=== PATIENT | female | born 1960 | race Caucasian/White ===

== ENCOUNTER 2017-08-13 01:24 | Day surgery (SDC) | payer OTHER ==
[~2017-08-13] VITALS: Ht 161.3 cm; Wt 72.6 kg
[~2017-08-13 01:24] MED LIST: AMLO-109 PO; AMLO2.5T74 PO; ASCO-182 PO; ASPI-757 PO; ATOR20TA22 PO; CETI10CA8 PO; CLOP75TA PO; GLUC100026 PO; IBUP600T22 PO; LEVO25TA57 PO; LEVO75TA68 PO; LOR5/325 PO; METF-410 PO; PANT40TA65 PO; VENL75CA58 PO
--- NOTE | 2017-08-13 05:42 | Post Operative Progress Note ---
Post Operative Progress Note Date: Aug 13, 2017 Time: 10:13 Surgeon: navarro Anesthesia: dr cagle Pre-Op Diagnosis: anemia, family history of colon cancer and melena Post-Op Diagnosis: gastritis and normal colonoscopy Procedure(s): egd and biopsy and colonoscopy MARCIANO BAJWA MD Aug 13, 2017 05:42
--- NOTE | 2017-08-13 05:43 | Short(Outpt) Discharge Summary ---
Discharge Summary Reason for Hosp/Final Diag: (1) IRON DEFICIENCY ANEMIA SECONDARY TO BLOOD LOSS (CHRONIC) Hospital Course & Plan: colonoscopy was normal, egd revealed gastritis Departure Discharge to: Home Discharge Instructions Home Meds Reported Medications Pantoprazole Sodium (PANTOPRAZOLE SODIUM) 40 Mg Tablet.dr, 40 MG PO QDAY, TAB.SR 08/13/17 Ascorbic Acid (VITAMIN C) 500 Mg Tablet, 500 MG PO QHS, TAB 08/06/17 Glucosamine Sulfate 2KCL (GLUCOSAMINE) Unknown Strength Tablet, PO QDAY 08/06/17 Levothyroxine Sodium (SYNTHROID) 75 Mcg Tablet, 75 MCG PO QDAY 08/06/17 Amlodipine Besylate/Benazepril (LOTREL 5-10 MG CAPSULE) 1 Each Capsule, 1 EACH PO QDAY, CAPSULE 08/06/17 Atorvastatin Calcium (LIPITOR) 20 Mg Tablet, 1 TAB PO QDAY, TAB 08/06/17 Cetirizine Hcl (ZYRTEC) 10 Mg Capsule, 10 MG PO QDAY, CAPSULE 08/06/17 Metformin Hcl (METFORMIN HCL) 500 Mg Tablet, 250 MG PO QDAY, TAB 08/06/17 Clopidogrel Bisulfate (CLOPIDOGREL) 75 Mg Tablet, 1 TAB PO QDAY, TAB 08/06/17 Aspirin (ASPIRIN) 325 Mg Tablet, 325 MG PO QDAY, TAB 08/06/17 Discontinued Reported Medications Pantoprazole Sodium (PANTOPRAZOLE SODIUM) Unknown Strength Tablet.dr, PO QDAY, TAB.SR 08/06/17 Amlodipine Besylate (AMLODIPINE BESYLATE) 2.5 Mg Tablet, 1 TAB PO QDAY, #30 TAB TAKE ONE TABLET BY MOUTH EVERY DAY 09/12/13 Levothyroxine Sodium (SYNTHROID) 25 Mcg Tablet, 25 MCG PO QDAY 09/12/13 Venlafaxine Hcl (EFFEXOR XR) 75 Mg Cap.er.24h, 75 MG PO QDAY 09/12/13 Diet: Regular Activity: As Tolerated MARCIANO BAJWA MD Aug 13, 2017 05:43
[2017-08-13] MEDS ORDERED: PROPOFOL EMUL(*) 10MG/ML 20 ML 20 ML ONE ×2 (07:13→09:50)
[2017-08-13] MEDS ORDERED: PANT40TA65 PO (08:33)
[2017-08-13] MEDS ORDERED: MIDAZOLAM 2 MG/2 ML VIAL IVP PRN (08:45)
[2017-08-13] MEDS ORDERED: NORMOSOL R SOLN(*) 1000 ML BAG 1,000 ML IV PRN (08:45)
[2017-08-13] MEDS ORDERED: LIDOCAINE/SOD BICARB 8.4% SYR ID ONE (08:45)
[2017-08-13 09:07] VITALS: BP 140/69
[2017-08-13 10:10] VITALS: BP 116/65
[2017-08-13 10:30] VITALS: BP 108/54
[2017-08-13 10:41] VITALS: BP 108/42
[2017-08-13 10:43] VITALS: BP 96/57
--- NOTE | 2017-08-13 16:52 | OPERATIVE REPORT 1 ---
EVENT DATE: August 13, 2017 SURGEON: Mata Yang MD ANESTHESIOLOGIST: Adalberto Cornell MD ANESTHESIA: Sedation. PREOPERATIVE DIAGNOSES 1. Anemia. 2. Family history of colon cancer. POSTOPERATIVE DIAGNOSIS Normal-appearing colonoscopic examination. PROCEDURE PERFORMED Colonoscopy. DESCRIPTION OF PROCEDURE The patient was placed in the left lateral decubitus position and given intravenous sedation. The rectal exam was unremarkable. A flexible colonoscope was inserted and advanced to the cecum. We had some difficulty with the loop. We had to put her in the supine position, but then we were able to get the cecum cannulated. We retroflexed the scope in the cecum and visualized the ileocecal valve. No abnormalities were noted. The cecum was normal. Care was taken to look behind the haustral folds. No abnormalities were noted in the right colon, transverse, descending, sigmoid colon, or rectum. The scope was retroflexed in the rectum, and that appeared to be normal. The patient should have a repeat colonoscopy in 5 years because of her family history of colon cancer. PARTH
--- NOTE | 2017-08-13 17:12 | OPERATIVE REPORT 1 ---
EVENT DATE: August 13, 2017 SURGEON: Mata Yang MD ANESTHESIOLOGIST: Adalberto Cornell MD ANESTHESIA: Sedation. PREOPERATIVE DIAGNOSIS Anemia. POSTOPERATIVE DIAGNOSIS Gastritis. PROCEDURE PERFORMED Esophagogastroduodenoscopy with biopsy for Helicobacter pylori, biopsy of the esophagus. DESCRIPTION OF PROCEDURE The patient was placed in the left lateral decubitus position and given intravenous sedation. The flexible gastroscope was inserted. The GE junction was at 38 cm. The stomach was empty. It passed through the pylorus into the second and third portions of the duodenum which were normal. The duodenal bulb was normal. The pylorus was normal. The antrum was normal. In the body of the stomach, she had some gastric erosion that appeared to be healing. There was no evidence of any recent blood. We did biopsy for H. pylori. The scope was retroflexed on itself, and no abnormalities were noted. We then slowly withdrew the scope. The GE junction was distinct. No ulceration or inflammation. As we pulled back, there was some material on the side of the esophagus. At first I thought this was abnormal. Biopsies were taken, but then it became apparent this was just debris that washed off with the saline. Underlying this material, the esophagus appeared to be normal. The scope was then removed. The patient tolerated the procedure well with no apparent complications. [*] MTDD
== END 2017-08-13 11:05 | disposition home or self-care (01) ==
LOC: OR 01:24
PROVIDERS: ATTEND Surgery
DX: D64.9 Anemia, unspecified (principal); Z83.71 Family history of colonic polyps; K29.70 Gastritis, unspecified, without bleeding
CPT/HCPCS: 00811; 36416; 43239; 45378; 82948; 87077; 88305; 88312; 88313; J2704

== ENCOUNTER → 2017-12-31 | Outpatient (CLI) | payer OTHER ==
[~2017-12-31] MED LIST changes: -METF-410 PO; +METF-411 PO
--- NOTE | 2017-12-31 14:50 | RADIOLOGY IMAGING REPORT ---
FACILITY: [facility] [place] PATIENT NAME: Rocío Garibay : 1960 MR: [id number] V: [id number] EXAM DATE: ORDERING PHYSICIAN: KRISHAN DONAHUE TECHNOLOGIST: Location: [facility] [place] Patient: Rocío Garibay : 1960 Visit/Account:[id number] Date of Sevice: 12/31/2017 DEXA Scan Clinical history: Osteopenia. Comparison: None available. LUMBAR SPINE: The bone mineral density (BMD) measured from L1-L4 correlates with a Z-score 1.4 and a T-score of 0.5 which is Normal as defined by the World Health Organization. The corresponding risk of fracture in the lumbar spine is Not increased compared with a young adult reference population. HIP: Bone mineral density (BMD) measured in the Left total hip region correlates with a Z-score -0.1 and a T-score of -0.7 which is Normal as defined by the World Health Organization. The corresponding risk of fracture in the hip is 1-2X compared with a young adult reference population. Bone mineral density (BMD) measured in the Femoral Neck region measures 0.916 g/cm2. Impression: 1. Lumbar spine: Normal. 2. Left Hip: Normal. 3. Femoral Neck: Bone Mineral Density is 0.916 g/cm2 The next DEXA scan of this patient should include the following sites: L1-L4 and the left hip. FRAX? WHO Fracture Risk Assessment Tool link: <http://www.shef.ac.uk/FRAX/tool.jsp?[email or web address]> PLEASE NOTE: 1) The World Health Organization defines low BMD as follows: T-score Normal > -1 Osteopenia < -1 and > -2.5 Osteoporosis < -2.5 without fractures Established osteoporosis < -2.5 with fractures 2) In general, you may wish to consider: Diagnosis Treatment Follow-up DEXA Normal BMD Prevention 2-3 years Osteopenia Prevention/therapy 1-2 years Osteoporosis Therapy Yearly 3) Fracture risk estimated from the T-score is more accurate for vertebral fractures (often spontane ous) than for hip fractures. Report Dictated By: Safnord Alexander DO at 12/31/2017 2:46 PM Report E-Signed By: Sanford Alexander DO at 12/31/2017 2:46 PM WSN:OMAR
== END ==
LOC: RAD 14:06
PROVIDERS: ATTEND Family Medicine
DX: Z13.820 Encounter for screening for osteoporosis (principal); M85.80 Other specified disorders of bone density and structure, unspecified site; M25.551 Pain in right hip; M25.552 Pain in left hip
CPT/HCPCS: 77080